=== PATIENT | female | born 1930 | race Caucasian/White ===

== ENCOUNTER 2017-10-08 13:18 | Outpatient (RCR) | payer MEDICARE | END 2018-01-06 | disposition home or self-care (01) | LOC: ONC 13:18 | PROVIDERS: ATTEND Internal Medicine Hematology & Oncology | DX: Z08 Encounter for follow-up examination after completed treatment for malignant neoplasm (principal); Z85.43 Personal history of malignant neoplasm of ovary; I10 Essential (primary) hypertension; E78.5 Hyperlipidemia, unspecified; Z79.899 Other long term (current) drug therapy | CPT/HCPCS: 36415; 86304; 99214 ==